=== PATIENT | female | born 1980 | race Native Hawaiian/Other Pacific Islander ===

== ENCOUNTER → 2017-06-06 | Outpatient (CLI) | payer MEDICAID | LOC: FIMAGING 10:16 | PROVIDERS: ATTEND Obstetrics & Gynecology | DX: O09.521 Supervision of elderly multigravida, first trimester (principal); O26.851 Spotting complicating pregnancy, first trimester; Z3A.12 12 weeks gestation of pregnancy; Z87.59 Personal history of other complications of pregnancy, childbirth and the puerperium ==

== ENCOUNTER → 2017-07-21 | Outpatient (CLI) | payer MEDICAID | LOC: FIMAGING 11:43 | PROVIDERS: ATTEND Obstetrics & Gynecology | DX: O43.123 Velamentous insertion of umbilical cord, third trimester (principal); O09.292 Supervision of pregnancy with other poor reproductive or obstetric history, second trimester; O34.219 Maternal care for unspecified type scar from previous cesarean delivery; O09.522 Supervision of elderly multigravida, second trimester; Z3A.19 19 weeks gestation of pregnancy ==